=== PATIENT | female | born 1965 | race Caucasian/White ===

== ENCOUNTER 2020-12-19 09:05 | Outpatient (CLI) | payer BC, SELFPAY ==
--- NOTE | ~2020-12-19 | MMUS_ITS ---
EXAMINATION: US GUIDED NEEDLE BIOPSY DATE: 12/19/2020 12:14 CDT INDICATION: 9:00 sonographic breast mass 4 cm from nipple TECHNIQUE AND FINDINGS: The risks and potential benefits of the procedure were discussed with the patient, and written inform ed consent was obtained. Timeout procedure was performed. After sterile preparation of the left breas t, 1% lidocaine was utilized for local anesthesia. A 14G spring-loaded biopsy gun needle was advanced to the edge of the region of interest from a media l approach utilizing sonographic guidance. A total of 2 tissue core samples were obtained through th e lesion. (Patient complained of pain, was crying.) An Inrad tissue marker clip was then placed at t he biopsy site. Hemostasis was achieved. A sterile bandage was applied. There was no evidence of immediate complication. The patient was given verbal instructions prior to departing from the department. A two view mammogram was performed to document tissue marker clip plac ement. The tissue samples were submitted to surgical pathology for histologic analysis. IMPRESSION: 1. Successful ultrasound guided biopsy of left 9:00 breast mass with biopsy marker placement. Please refer to pathology report for histologic analysis. Reviewed, dictated and finalized at [facility]. Reviewed, dictated and finalized at location A. IMPRESSION: 1. Successful ultrasound guided biopsy of left 9:00 breast mass with biopsy ma rker placement. Please refer to pathology report for histologic analysis.
== END 2020-12-19 09:06 | disposition home or self-care (01) ==
LOC: ANHIMG 09:09
PROVIDERS: PCP Family Medicine; Visit Provider Surgery
DX: C50.912 Malignant neoplasm of unspecified site of left female breast (principal)
CPT/HCPCS: 19083; 88305; 88342; 88360; A4648

== ENCOUNTER 2021-01-15 07:58 | Outpatient (CLI) | payer BC, SELFPAY ==
--- NOTE | ~2021-01-15 | MR_ITS ---
EXAMINATION: MR breast BI wo/w con INDICATION: Left breast cancer TECHNIQUE: Axial VIBRANT pre and dynamic post contrast, Sagittal VIBRANT post contrast, Axial T2 STIR ASSET COMPARISON: None CONTRAST: Multihance, 20 cc BREAST COMPOSITION: Heterogeneous fibroglandular tissue FINDINGS: RIGHT BREAST: There is mild background parenchymal enhancement. No abnormal enhancement is present af ter contrast administration. No pathologically enlarged axillary or internal mammary lymph nodes are identified. LEFT BREAST: There is mild background parenchymal enhancement. There is a 2.8 x 2.2 x 2.2 cm irregula r mass with spiculated margins in the middle third of the lower inner breast at the 8:00 location 4.8 cm from the nipple. The mass demonstrates fast initial enhancement and washout in the delayed phase. No pathologically enlarged axillary or internal mammary lymph nodes are identified. IMPRESSION: 1. Left breast mass, consistent with biopsy-proven malignancy. No metastatic disease identified. BI-RADS category 6, known biopsy-proven malignancy. Reviewed, dictated and finalized at location A. NING DEVELOPER IMPRESSION: 1. Left breast mass, consistent with biopsy-proven malignancy. No metastatic di sease identified. BI-RADS category 6, known biopsy-proven malignancy.
[2021-01-15 11:02] LABS: Estimated Glomerular Filt Rate > 60
== END 2021-01-15 07:59 | disposition home or self-care (01) ==
LOC: ANHIMG 08:03
PROVIDERS: PCP Family Medicine; Visit Provider Surgery
DX: C50.912 Malignant neoplasm of unspecified site of left female breast (principal)
CPT/HCPCS: 77049; A9577; C8908

== ENCOUNTER 2021-02-04 08:34 | Outpatient (CLI) | payer BC, SELFPAY ==
--- NOTE | 2021-02-04 08:42 | ECG_ITS ---
Measurements Intervals [place] Rate: 61 P: 47 OK: 142 QRS: -10 QRSD: 106 T: 31 QT: 432 QTc: 438 Interpretive Statements SINUS RHYTHM VOLTAGE CRITERIA FOR LVH MINIMAL Q WAVES- HIGH LATERAL LEADS BASELINE ARTIFACT- I, II, III, AVR BORDERLINE ECG Electronically Signed On 02-04-2021 9:20:53 CARDIOLOGY TECHNOLOGIST by Jesus Marinelli D.O.
[2021-02-04 09:56] LABS: Basophils Percent Auto 0.5 % (0.2-1.2); Eosinophils Absolute Auto 0.1 K/mm3 (0-0.3); Eosinophils Percent Auto 1.5 % (0-4.4); Hematocrit 37.5 % (37.0-47.0); Hemoglobin 12.3 g/dL (12.0-15.0); Immature Granulocyte Absolute 0.03 K/mm3 (0.00-0.031); Immature Granulocyte Percent A 0.4 % (0-0.5); Lymphocytes Absolute Auto 2.44 K/mm3 (0.9-3.2); Lymphocytes Percent Auto 33.5 % (18.3-44.2); Mean Corpuscular HGB Conc 32.8 g/dl (32-36); Mean Corpuscular Hemoglobin 29.4 pg (26-34); Mean Corpuscular Volume 89.7 fl (80-100); Mean Platelet Volume 10.8 fl (7.4-10.4); Monocytes Absolute Auto 0.5 K/mm3 (0.1-0.6); Monocytes Percent Auto 6.7 % (2.6-8.5); Neutrophils Absolute Auto 4.2 K/mm3 (1.3-6.7); Neutrophils Percent Auto 57.4 % (45.5-73.1); Platelet Count Result 311 k/mm3 (150-375); Red Blood Count 4.18 M/mm3 (4.2-5.4); White Blood Count 7.3 K/mm3 (4.5-10.0)
[2021-02-04 10:17] LABS: Alanine Aminotransferase 34 U/L (4-35); Albumin Level 4.4 g/dL (3.5-5.1); Alkaline Phosphatase 59 U/L (38-126); Anion Gap 8 mmol/L (8-16); Aspartate Amino Transferase 23 U/L (14-36); Bilirubin,Total 0.4 mg/dL (0.2-1.3); Blood Urea Nitrogen 11 mg/dL (7-17); Carbon Dioxide 28 mmol/L (22-30); Chloride 99 mmol/L (98-107); Estimated Glomerular Filt Rate > 60; Glucose 228 mg/dL (65-110); Sodium 135 mmol/L (137-145)
== END 2021-02-04 08:35 | disposition home or self-care (01) ==
LOC: ANHSURGERY 08:40
PROVIDERS: PCP Family Medicine; Visit Provider Surgery
DX: Z01.818 Encounter for other preprocedural examination (principal); I10 Essential (primary) hypertension; E11.9 Type 2 diabetes mellitus without complications; C50.912 Malignant neoplasm of unspecified site of left female breast
CPT/HCPCS: 36415; 80053; 85025; 93005

== ENCOUNTER 2021-02-04 10:18 | Outpatient (CLI) | payer BC, SELFPAY ==
--- NOTE | ~2021-02-04 | XR_ITS ---
EXAMINATION: XR chest 2V DATE: 02/04/2021 10:49 INDICATION: Malignant neoplasm of the left breast TECHNIQUE: PA and lateral views of the chest were obtained. COMPARISON: None FINDINGS: The lungs are clear with no focal airspace opacities, pulmonary edema, pleural effusion or pneumothor ax. The cardiomediastinal silhouette is normal. Mild thoracic dextrocurvature with mild spondylosis. IMPRESSION: 1. No acute cardiopulmonary disease. Reviewed, dictated and finalized at location B. FF PUBLISHING AGENT
== END 2021-02-04 10:19 | disposition home or self-care (01) ==
PROVIDERS: PCP Family Medicine; Visit Provider Internal Medicine Medical Oncology
DX: C50.912 Malignant neoplasm of unspecified site of left female breast (principal); Z17.0 Estrogen receptor positive status [ER+]
CPT/HCPCS: 71046

== ENCOUNTER 2021-02-25 14:55 | Outpatient (CLI) | payer BC, SELFPAY ==
[2021-02-25 15:39] LABS: Basophils Absolute Auto 0.1 K/mm3 (0.0-0.1); Basophils Percent Auto 0.6 % (0.2-1.2); Eosinophils Absolute Auto 0.1 K/mm3 (0-0.3); Hematocrit 38.8 % (37.0-47.0); Hemoglobin 12.8 g/dL (12.0-15.0); Immature Granulocyte Absolute 0.03 K/mm3 (0.00-0.031); Immature Granulocyte Percent A 0.3 % (0-0.5); Lymphocytes Absolute Auto 2.86 K/mm3 (0.9-3.2); Lymphocytes Percent Auto 29.4 % (18.3-44.2); Mean Platelet Volume 10.5 fl (7.4-10.4); Monocytes Absolute Auto 0.6 K/mm3 (0.1-0.6); Monocytes Percent Auto 5.9 % (2.6-8.5); Neutrophils Absolute Auto 6.1 K/mm3 (1.3-6.7); Neutrophils Percent Auto 62.8 % (45.5-73.1); Platelet Count Result 356 k/mm3 (150-375); Red Blood Count 4.41 M/mm3 (4.2-5.4); Red Cell Distribution Width 13.8 % (11.5-14.5); White Blood Count 9.7 K/mm3 (4.5-10.0)
[2021-02-25 15:46] LABS: Alanine Aminotransferase 31 U/L (4-35); Albumin Level 4.5 g/dL (3.5-5.1); Alkaline Phosphatase 66 U/L (38-126); Anion Gap 9 mmol/L (8-16); Aspartate Amino Transferase 26 U/L (14-36); Bilirubin,Total 0.4 mg/dL (0.2-1.3); Blood Urea Nitrogen 14 mg/dL (7-17); Calcium 9.6 mg/dL (8.4-10.2); Carbon Dioxide 24 mmol/L (22-30); Chloride 104 mmol/L (98-107); Estimated Glomerular Filt Rate > 60; Glucose 132 mg/dL (65-110); Potassium 3.9 mmol/L (3.4-5.0); Sodium 137 mmol/L (137-145)
[2021-02-25 15:52] LABS: Beta-Hydroxybutyrate/Acetoacetate 0.32 mmol/L (0.02-0.27)
[2021-02-25 16:09] LABS: Hemoglobin A1C 8.1 % (<5.7)
== END 2021-02-25 14:56 | disposition home or self-care (01) ==
LOC: ANHLAB 14:58
PROVIDERS: PCP Family Medicine; Visit Provider Family Medicine
DX: E11.9 Type 2 diabetes mellitus without complications (principal); Z51.81 Encounter for therapeutic drug level monitoring; Z79.4 Long term (current) use of insulin; R25.2 Cramp and spasm
CPT/HCPCS: 36415; 80053; 82010; 83036; 83735; 84443; 85025

== ENCOUNTER 2021-03-10 15:14 | Outpatient (CLI) | payer BC, SELFPAY ==
--- NOTE | 2021-03-10 15:26 | ECHO_ITS ---
Patient Info Name: Zahra Bruno Age: 55 years : 1965 Gender: Female Ht: 69 in Wt: 287 lbs BSA: 2.58 m2 HR: 76 bpm BP: 175 / 93 mmHg Heart Rhythm: Sinus Arrhythmia Technical Quality: Fair Exam Date: 03/10/2021 3:33 PM Exam Location: [facility] Patient Status: Outpatient Admit Date: 03/10/2021 Staff Ordering Physician: Madelaine Moody DO Asphalt Paving Machine Operator: Stephanie Lambert RDCS Attending Provider: Madelaine Moody DO Referring Physician: Heidy SANCHEZ; Exam Type: CA echo doppler color flow Study Info Indications - Cardiac murmur, unspecified Complete two-dimensional, color flow and Doppler transthoracic echocardiogram is performed. Summary 1. Complete two-dimensional, color flow and Doppler transthoracic echocardiogram is performed. 2. Left ventricular chamber dimension is normal. 3. Left ventricular systolic function is normal, estimated at 60-65%. 4. There is mildly increased left ventricular wall thickness. 5. The left ventricular diastolic function is abnormal. 6. E/e' 11 is mildly elevated. 7. Left atrial chamber dimension is mildly enlarged. 8. There is trace mitral valve regurgitation. 9. There is mild tricuspid valve regurgitation. 10. No pulmonary hypertension, estimated pulmonary arterial systolic pressure is 38 mmHg. 11. There is trace pulmonic regurgitation. Left Ventricle E/e' 11 is mildly elevated. Left ventricular chamber dimension is normal. Left ventricular systolic function is normal, estimated at 60-65%. There is mildly increased left ventricular wall thickness. The left ventricular diastolic function is abnormal. Right Ventricle Right ventricular systolic function is normal and with normal TAPSE 2.3 cm. Right ventricular chamber dimension is normal. Left Atria Left atrial chamber dimension is mildly enlarged. Right Atria Right atrial chamber dimension is normal. Aortic Valve The aortic valve is trileaflet. There is no aortic valve stenosis. There is no aortic valve regurgitation. Pulmonic Valve There is trace pulmonic regurgitation. Mitral Valve There is no mitral valve stenosis. There is trace mitral valve regurgitation. Tricuspid Valve There is mild tricuspid valve regurgitation. No pulmonary hypertension, estimated pulmonary arterial systolic pressure is 38 mmHg. Pericardium/Pleural There is no pericardial effusion. Inferior Vena Cava Normal inferior vena cava with >50% collapse upon inspiration consistent with normal right atrial pressure, 5 mmHg. Aorta The aortic root size at the sinus of Valsalva is normal. Left Ventricular Outflow Tract Name Value Normal LVOT 2D LVOT Diameter 2.0 cm LVOT Doppler LVOT Peak Gradient 12 mmHg LVOT Mean Gradient 6 mmHg LVOT VTI 33 cm LVOT VTI/AV VTI Ratio 0.9 LVOT Stroke Volume 101 ml LVOT CO 8.1 l/min LVOT CI 3.1 l/min/m2 Pulmonic Valve
== END 2021-03-10 15:15 | disposition home or self-care (01) ==
LOC: ANHCARD 15:16
PROVIDERS: PCP Family Medicine; Visit Provider Family Medicine
DX: R01.1 Cardiac murmur, unspecified (principal); I07.1 Rheumatic tricuspid insufficiency
CPT/HCPCS: 93306

== ENCOUNTER 2021-03-18 00:59 | Day surgery (SDC) | payer BC, SELFPAY ==
[2021-02-02 10:27] VITALS: BMI 42.6
--- NOTE | 2021-02-02 10:44 | PC.NURSE ---
Report to the Outpatient Waiting Room, entrance under the green pavilion located off [facility], at time 8:30 on date 02/09/21. OR Time: 12:00. NEEDLE LOCALIZATION - 9:30, NUCLEAR MED INJECTION - 10:00 - You and your visitor will be asked a series of questions to screen for COVID 19 for your protection. - A mask is required within the hospital. - Only one visitor is allowed at this time. Patient visitors will be guided where to wait when not with patient. Preoperative COVID Testing Requirements: No COVID Test needed if: (proof is required; if not received patient will have Rapid Test prior to entry) - Patient has received COVID Vaccine at least 14 days prior to procedure date or - Patient has positive COVID test result within last 90 days of surgery date. COVID Test needed if above criteria is not met If not COVID vaccinated a COVID test must be conducted within 72 hours of surgery and patient is asked to isolate self from time of testing until procedure. You will go to the [facility] Testing Site for your COVID testing. The [facility] Thru Testing site is located at the corner of [address] [facility]. You will only be called if COVID results are positive and your surgeon may reschedule your elective surgery date. Patients may have clear liquids (water, carbonated beverages, clear teas, apple juice) until 3 hours prior to surgery with a maximum of 20 ounces. - No food from midnight until time of surgery - Infants may have breast milk until 4 hours before surgery, formula 6 hours prior to surgery. - Children will be allowed to drink immediately following surgery. If applicable, please bring a bottle or sippy cup to assist with drinking. Juice, water, soda, and popsicles are readily available. For infants on formula, please bring formula the day of surgery. Pacifiers are allowed. Take the following medications with a SIP of water the morning of surgery: AMLODIPINE, INHALER (IF NEEDED) Medications to discontinue per physician: VITAMINS/SUPPLEMENTS Date to take last dose: 02/05/21 Please no make-up, nail setswana, hairspray, perfume, deodorant, or body powder the day of surgery. No jewelry (including any body piercings) or valuables the day of surgery, leave them at home. Please take a shower or bath the night before, or the morning of, surgery with an antibacterial soap. Wear comfortable, loose fitting clothing. Children are encouraged to wear pajamas. HIBICLENS SHOWER - Jewelry must be removed prior to entering the operating room. Rings and piercings that are not removed may be cut off. - The hospital will not accept responsibility for valuables. - Please leave all valuables, including medications, at home the day of surgery. If you are going home after surgery, a licensed funeral car driver must drive you home. - NO public transportation without another adult. - We recommend that an adult stay with you for 24 hours following discharge. - We also recommend that you do not drive, make important decision, drink alcoholic beverages, or take any drugs that were not prescribed by your health care provider for at least 24 hours after your discharge time. For Pediatric surgeries, we recommend two adults accompany the child home (only one inside the building at this time). Follow any additional instructions given to you from your surgeon. Telephone instructions given to GRANT MARTINEZ and asked if any additional questions and then verbalized understanding. Patient advised to call surgeon office or pre surgery nurse liaison [phone] if any additional questions.
--- NOTE | 2021-02-18 14:47 | PC.NURSE ---
Report to the Outpatient Waiting Room, entrance under the green pavilion located off [facility], at time __0630_ on date _03-02-2021. OR Time: ___. - You and your visitor will be asked a series of questions to screen for COVID 19 for your protection. - A mask is required within the hospital. - Only one visitor is allowed at this time. Patient visitors will be guided where to wait when not with patient. Preoperative COVID Testing Requirements: No COVID Test needed if: (proof is required; if not received patient will have Rapid Test prior to entry) - Patient has received COVID Vaccine at least 14 days prior to procedure date or - Patient has positive COVID test result within last 90 days of surgery date. COVID Test needed if above criteria is not met If not COVID vaccinated a COVID test must be conducted within 72 hours of surgery and patient is asked to isolate self from time of testing until procedure. You will go to the [facility] Testing Site for your COVID testing. The [facility] [employer] Thru Testing site is located at the corner of [address] [facility]. You will only be called if COVID results are positive and your surgeon may reschedule your elective surgery date. Patients may have clear liquids (water, carbonated beverages, clear teas, apple juice) until 3 hours prior to surgery with a maximum of 20 ounces. - No food from midnight until time of surgery - Infants may have breast milk until 4 hours before surgery, infant formula 6 hours prior to surgery. - Children will be allowed to drink immediately following surgery. If applicable, please bring a bottle or sippy cup to assist with drinking. Juice, water, soda, and popsicles are readily available. For infants on formula, please bring formula the day of surgery. Pacifiers are allowed. Take the following medications with a SIP of water the morning of surgery: __Amlodipine Medications to discontinue per physician Vitamins Date to take last cmdj [phone] Please no make-up, nail syriac, hairspray, perfume, deodorant, or body powder the day of surgery. No jewelry (including any body piercings) or valuables the day of surgery, leave them at home. Please take a shower or bath the night before, or the morning of, surgery with an antibacterial soap. Wear comfortable, loose fitting clothing. Children are encouraged to wear pajamas. - Jewelry must be removed prior to entering the operating room. Rings and piercings that are not removed may be cut off. - The hospital will not accept responsibility for valuables. - Please leave all valuables, including medications, at home the day of surgery. If you are going home after surgery, a licensed pile driver must drive you home. - NO public transportation without another adult. - We recommend that an adult stay with you for 24 hours following discharge. - We also recommend that you do not drive, make important decision, drink alcoholic beverages, or take any drugs that were not prescribed by your health care provider for at least 24 hours after your discharge time. For Pediatric surgeries, we recommend two adults accompany the child home (only one inside the building at this time). Follow any additional instructions given to you from your surgeon. Telephone instructions given to Patient and asked if any additional questions and then verbalized understanding. Patient advised to call surgeon office or pre surgery nurse liaison [phone] if any additional questions.
[2021-03-11 13:59] VITALS: BMI 41.8
--- NOTE | 2021-03-11 14:02 | PC.NURSE ---
reviewed medical history,allergies and medications,any changes made.pt change in date and time of surgery.
--- NOTE | 2021-03-11 14:03 | SUR.PREOP ---
Report to the Outpatient Waiting Room, entrance under the green pavilion located off [facility], at time _0830 on date _03/18/21 . OR Time: 1200 . needle localization scheduled 0930 - You and will be asked a series of questions to screen for COVID 19 for your protection. - A mask is required within the hospital. Preoperative COVID Testing Requirements: No COVID Test needed if: (proof is required; if not received patient will have Rapid Test prior to entry) - Patient has received COVID Vaccine at least 14 days prior to procedure date or - Patient has positive COVID test result within last 90 days of surgery date. COVID Test needed if above criteria is not met If not COVID vaccinated a COVID test must be conducted within 72 hours of surgery and patient is asked to isolate self from time of testing until procedure. You will go to the [employer] Thru Testing Site for your COVID testing. The [employer] Thru Testing site is located at the corner of [address] [facility]. You will only be called if COVID results are positive and your surgeon may reschedule your elective surgery date. Patients may have clear liquids (water, carbonated beverages, clear teas, apple juice) until 3 hours prior to surgery with a maximum of 20 ounces. - No food from midnight until time of surgery - Infants may have breast milk until 4 hours before surgery, infant formula 6 hours prior to surgery. - Children will be allowed to drink immediately following surgery. If applicable, please bring a bottle or sippy cup to assist with drinking. Juice, water, soda, and popsicles are readily available. For infants on formula, please bring formula the day of surgery. Pacifiers are allowed. Take the following medications with a SIP of water the morning of surgery: __amlodipine Medications to discontinue per physician __vitamin supplements Date to take last dose03/15/21 Please no make-up, nail bulgarian, hairspray, perfume, deodorant, or body powder the day of surgery. No jewelry (including any body piercings) or valuables the day of surgery, leave them at home. Please take a shower or bath the night before, or the morning of, surgery with an antibacterial soap. Wear comfortable, loose fitting clothing. Children are encouraged to wear pajamas. - Jewelry must be removed prior to entering the operating room. Rings and piercings that are not removed may be cut off. - The hospital will not accept responsibility for valuables. - Please leave all valuables, including medications, at home the day of surgery. If you are going home after surgery, a licensed test car driver must drive you home. - NO public transportation without another adult. - We recommend that an adult stay with you for 24 hours following discharge. - We also recommend that you do not drive, make important decision, drink alcoholic beverages, or take any drugs that were not prescribed by your health care provider for at least 24 hours after your discharge time. For Pediatric surgeries, we recommend two adults accompany the child home (only one inside the building at this time). Follow any additional instructions given to you from your surgeon. Telephone instructions given to _ziggy henry and asked if any additional questions and then verbalized understanding. Patient advised to call surgeon office or pre surgery nurse liaison [phone] if any additional questions.
--- NOTE | 2021-03-17 20:32 | PM.HPGS ---
History of Present Illness History of Present Illness Consent: Risks, benefits, and alternatives of a Left breast needle localized lumpectomy with sentinel lymph node biopsy, possible left axillary dissection have been discussed and questions answered. Patient agrees to proceed with procedure. Chief complaint: Left Breast Cancer Narrative: Zahra Bruno is a 55 year old female who first present to my office in Nov. of last year after a screening mammogram revealed an abnormal density in the outer left breast. She had focused compression mammogram views and an US which confirmed a <1 cm lesion in the outer left breast. She then had an US guided left breast core BX. which showed a stage T2 Nx, MO infiltrating ductal carcinoma. She followed up in the office in late Nov. and we discussed further pre- op work-up including ordering an MR of the breast and getting aMedical Oncology consult. The pathology showed: Zahra returns to the office after an U/S guided needle biopsy at on 12/19/20 and pathology showed: Final Diagnosis A. LEFT BREAST AT 9:00 POSITION 4 CM FROM NIPPLE, ULTRASOUND-GUIDED CORE BIOPSY: - MODERATELY DIFFERENTIATED INVASIVE DUCTAL CARCINOMA (DEEP GRADE 2 OF 1-3 (TUBULES 3 + NUCLEI 2 + MITOSES 1 = 6 OF 3-9)), IN 2 OF 2 CORES, AT LEAST 0.8 CM IN GREATEST DIMENSION (SEE COMMENT). Comment: A breast cancer biomarker panel will be performed (addendum report to follow). Based on these findings, the pathologic staging is at least pT1b pNX pMX. The patient reports doing well postoperatively after her US core Bx. She is no longer experiencing pain and she initially developed some signs of infection so took some antibiotics. She has finished the Bactrim on 12/22/20 and states the signs of infection in the left breast has resolved. Left breast- Inspection, some bruising in the 7:00 position, 1cm off the areolar border inferior medial left breast. Biopsy area is nicely sealed. Will probably need a lumpectomy with SLN bx. ( see plan below) Surgical history of full hysterectomy in 2002 and cholecystectomy in 2019. Her surgery was delayed at her request until after the Holidays and then again for cardiac issues after a heart murmur required further W/U wiht a echocardiogram. She now presents desiring a lt. breast lumpectomy. Review of Systems Constitutional: Constitutional: Reports no additional constitutional complaints, Reports fatigue and Denies malaise Eyes: Eyes: Denies change in vision and Denies loss of vision ENT: Reports Normal hearing present, Denies change in voice, Denies dizziness, Denies hoarseness and Denies sore throat Cardiovascular: Cardiovascular: Denies chest pain, Denies leg edema and Denies dyspnea Respiratory: Respiratory: Denies cough, Denies dyspnea and Denies wheezing Gastrointestinal: Gastrointestinal: Denies hematochezia, Denies change in bowel habits and Denies heartburn Comments: History of a cholecytectomy in Genitourinary: Genitourinary: Denies urinary frequency and Denies urinary incontinence Comments: HX of a hysterectomy in 2002 Hormone studies done by Med Onc application development consultant Dr. Casey Deras showed elevated estrogen levels not indicating that the pt was post menopausal status. Integumentary/Breasts: Skin/Breast: Reports furuncle (Recently resolved on lower estremity.) Neurologic: Reports Normal hearing present, Denies confusion, Denies dizziness, Denies loss of vision, Denies memory loss and Denies seizure-like activity Psychiatric: Psychiatric: Denies confusion, Denies depression and Denies memory loss Endocrine: Endocrine: Denies cold intolerance and Reports fatigue Hematologic/Lymphatic: Hematologic/Lymphatic: Denies easy bleeding and Denies easy bruising Allergic/Immunologic: Allergic/Immunologic: Denies wheezing PMFSH Past Medical History Medical History Allergies Arthritis Asthma Diabetes Hypertension Surgical Histor
[2021-03-18] VITALS (13 sets, daily range): BP systolic 119–178; BP diastolic 49–85; PULSE 60–103; RESP 14–24; TEMP 36.3–36.6; O2SAT 92–100
--- NOTE | ~2021-03-18 | NM_ITS ---
EXAMINATION: MM needle loc LT, MM surgical specimen LT, NM sentinel node inject only MAMMOGRAPHY SPECIMEN DATE: 03/18/2021 14:19 SPINNING ROOM WORKER INDICATION: Abnormal left breast mammogram. Left breast cancer. TECHNIQUE: The procedure for a mammography-guided needle localization was discussed with the patient' s. Risks and benefits were detailed, including risks of bleeding, infection, pain, and nondiagnostic specimen. The patient verbalized understanding and agreed to proceed. The time out was performed to verify the patient's name, date of , and site of procedure. The p atient was placed in left breast compression, and the skin overlying the left breast was prepped in u sual fashion. Utilizing mammography guidance, a needle was advanced into the left breast. Two confi rmatory films were obtained. The patient tolerated procedure without immediate complication. A specimen radiograph was performed. 1.066 Millicuries Tc 99m filtered sulfur colloid was injected and 4 aliquots in the anterior upper ou ter quadrant of the breast near the areola. No images were obtained. FINDINGS: Two view confirmatory films of the left breast demonstrate a the wire adjacent to the tissu e marker and mass in the lower inner quadrant. The tissue marker and mass are contained within the s urgical specimen. IMPRESSION: 1. Successful mammography-guided left breast needle localization and sentinel lymph node injection. Reviewed, dictated and finalized at location A. NING ROOM WORKER IMPRESSION: 1. Successful mammography-guided left breast needle localization and sentinel lymph node injection. IMPRESSION: 1. Successful mammography-guided left breast needle localization and sentinel lymph node injection.
[2021-03-18] MEDS: LACTATED RINGERS 1,000 ML 30 ML IV CONT ×2 (09:00→15:21)
[2021-03-18] MEDS: ACETAMINOPHEN 500 MG TABLET 1000 MG PO (09:00)
[2021-03-18] MEDS: KETOROLAC 15 MG/ML VIAL (*BKC) IV PUSH (09:02)
[2021-03-18 09:46] LABS: Glucose Point of Care 144 mg/dl (65-105)
--- NOTE | 2021-03-18 11:00 | WPDANESEPPF ---
Anes - Initial Pre Proc Eval Procedure: Operation Date: 03/18/21 12:00 Proposed Procedures p Ultrasound and/or Mammogram Guided Needle Localization Left Breast, - Kyle Odom MD s Left Breast Lumpectomy with [place] Lymph Node Biopsy Left Breast - Kyle Odom MD Date/Time: 03/18/21 11:00 Surgeon: Kyle Odom MD Pre Op Diagnosis: Left Breast Cancer Patient Data Age: 55 Gender: F Height: 1.77 m Weight: 130.45 kg Allergies Allergy/AdvReac Type Severity Reaction Status Date / Time metformin Allergy Severe Rash Verified 03/11/21 13:36 Penicillins Allergy Severe Rash Verified 03/11/21 13:35 hydrocodone [From Vicodin] AdvReac Severe Itching Verified 03/11/21 13:35 Home Medications Medication Instructions Recorded Confirmed Type albuterol 90 mcg/actuation aerosol 90 mcg INHALATION Q4H PRN 12/11/20 03/11/21 History inhaler amlodipine 5 mg tablet 5 mg PO DAILY 12/11/20 03/11/21 History cholecalciferol (vitamin D3) 1,250 2,000 unit PO DAILY wafer 12/11/20 03/11/21 History mcg (50,000 unit) oral wafer fluticasone propionate 50 1 spray INTRANASAL DAILY 12/11/20 03/11/21 History mcg/actuation nasal spray,suspension insulin degludec 100 unit/mL (3 70 unit SUBCUT QHS #24 ml 12/11/20 03/11/21 Rx mL) subcutaneous pen insulin lispro protamine-lispro 20 unit SUBCUT TIDWMEAL 12/11/20 03/11/21 History 100 unit/mL (50-50) subcutaneous pen meloxicam 15 mg tablet 15 mg PO DAILY 12/11/20 03/11/21 History multivitamin 1 tablet PO DAILY 12/11/20 03/11/21 History omeprazole 40 mg capsule,delayed 40 mg PO DAILY #90 cap 01/05/21 03/11/21 Rx release losartan 50 mg PO DAILY 02/02/21 03/11/21 History Laboratory Tests 03/18/21 09:32 POC Capillary Glucose 144 mg/dl H mg/dl (65-105) Patient hx anesthesia problems: none Family hx anesthesia problems: none Results Review: All pre-operative results and documents have been reviewed as part of the pre-operative evaluation. [facility] Past Medical History Medical History Allergies Arthritis Asthma Diabetes Hypertension Surgical History Surgical History H/O breast biopsy left breast core bx u/s guided 12/19/20 H/O dilation and curettage H/O: hysterectomy 2002 [place] History of section S/P cholecystectomy 2019 [facility] Family History Family History Mother Asthma Diabetes mellitus Hypertension Grandparent Asthma Diabetes mellitus Hypertension Heart disease Cerebrovascular accident Daughter Diabetes mellitus Hypertension Depression Heart disease Cerebrovascular accident Social History Social History Smoking status: Never smoker Alcohol intake: current Alcohol use details: socially Substance use: never Substance use type: does not use Living arrangements: alone Spiritual care concerns: No Anes - Eval Final PreProcedure Day of Procedure 03/18/21 11:00 Patient weight: morbidly obese Heart: regular rate and rhythm Lungs: clear to auscultation and normal air movement Airway: Mallampati scale class II Neurological: alert and oriented Last oral intake: >/= 8 hours ASA classification: III Emergent: no Anesthetic plan: proceed Anesthesia type and monitoring: general LMA and standard monitoring Results Review: All pre-operative results and documents have been reviewed as part of the pre-operative evaluation. Informed Consent: The patient's anesthetic plan and its attendant risks and benefits were discussed with the patient/family/POA. Questions were solicited and answers provided to the satisfaction of the patient/family/POA.
--- NOTE | 2021-03-18 11:59 | WPDHPUPDATE1 ---
History and Physical Update Update Date/Time: 03/18/21 11:59 History and Physical has been reviewed, including an updated exam of the patient. There are NO changes in the patient's condition. Risks, benefits, and alternatives of a sentinel lymph node biopsy on the left, with possible left axillary dissection and needle localized left breast lumpectomy have been discussed and questions answered. Patient agrees to proceed with procedure.
[2021-03-18] MEDS: BUPIVACAINE/EPINEPHRINE 0.25% 10 ML VIAL 20 ML INFILTRATE (12:15)
[2021-03-18] MEDS: ceFAZolin 3 GM/D5W 100 ML 100 ML IVPB (12:15)
[2021-03-18] MEDS: ISOSULFAN BLUE 1% INJ 5 ML VIAL SUB-Q (12:15)
--- NOTE | 2021-03-18 13:28 | SUR.OPER ---
3 gm ancef given by laly wiggins language tutor @ [phone] ivp
--- NOTE | 2021-03-18 15:25 | W.PM.PROC2 ---
Procedure Note - Detailed Date of Procedure 03/18/21 Pre-op Diagnosis Left Breast Cancer Post-op Diagnosis same Procedure Performed 1. [place] lymph node biopsy times 1 2. Needle localized left breast lumpectomy. 3. Excision of 1 none sentinel lymph node (this seemed to be enlarged) Surgeon Kyle Odom MD Grounds Person Angie BROOKS, OR conservation assistant Anesthesia general Indications Patient is a 55-year-old white female who was recently found to have a 2 cm infiltrating ductal carcinoma of the lower medial left breast. MRI showed no obvious enhancing lymph nodes and no other lesions within her breast on either side. Because of this the risks, benefits, and possible complications of a lumpectomy with sentinel lymph node biopsy have been described and she wishes to proceed. Findings Patient had a blue and hot lymph node by scintigraphy the was removed in the standard position just behind the pectoralis major muscle and this was felt to be a sentinel lymph node. Immediately deep to this there was an enlarged of the abnormal appearing 3 x 2 cm lymph node which was excised but it was not E either hot by scintigraphy or blue. There was obvious fibrous breast tissue on the edges of the excision of the lumpectomy specimen originally. Inspection by pathology showed that there was a 2.2 cm obvious mass and that margins were close anteriorly, medially, and inferiorly. All these margins were reexcised. Description of Procedure The patient was seen preoperatively in the holding area, and I marked the patient on the operative side (left). She was brought to the operating room and anesthesia delivered. She was prepped and draped in the usual sterile fashion. A time-out was performed confirming patient and site of surgery. Prior to any incision I carefully injected 6 cc of Lymphazurin blue in the dermis along the areolar margin starting the 6 o'clock position and doing 6 injections circumferentially. I then massaged the breast for 1 minute. An axillary incision was made on the left, and the subcutaneous tissues were dissected with electrocautery and the clavipectoral fascia was incised with electrocautery. Using the Navigator sentinel lymph node probe, the sentinel lymph node was identified and the count in vivo was 1,220. Then with an ex vivo 10- second count of 28.624 was recorded. The count in the axilla after removing this lymph node was between 200 and 300, for background noise. The sentinel lymph node was sent fresh for pathologic evaluation. There was also one non- sentinel lymph node identified visually and by palpation. This one was immediately deep to the sentinel lymph node and it was significantly enlarged estimated about 3 x 2 cm in size. This were sent for permanent sections in formalin to pathology. The wound was irrigated, hemostased, and closed with 2-0 Vicryl and 4-0 Monocryl. That wound was draped away with a sterile towel and the operative breast was examined. The localizing wire was noted to be entering the breast in the lower inner quadrant. I reviewed the mammograms done at the time of placement and planned my incision and excision. A curvilinear incision was made along the wire and the tissue surrounding the wire was removed widely with electrocautery. The specimen was oriented with a long suture lateral and short suture superior and sent for specimen mammogram. I DID send the breast tissue for fresh tissue exam immediate report requested at pathology. Mammography called back stating that the specimen was adequate with the clip and wire within the specimen and apparent good margins. The pathologist called back and stated that the sentinel lymph node showed no signs of cancer cells on touch prep and initial fresh evaluation. Then later the pathologist called back and stated that fresh exam of the lumpectomy specimen revealed the area of the tumor in the central part of the specimen and the closest margins to tumor would be about
[2021-03-18 15:52] LABS: Glucose Point of Care 175 mg/dl (65-105)
[2021-03-18] MEDS: fentaNYL CITRATE INJ (*CRX) 100 MCG/2 ML VIAL 25 MCG IV PUSH ×4 (16:16→16:34)
[2021-03-18] MEDS: ONDANSETRON INJ 4 MG/2 ML VIAL IV PUSH (17:49)
[2021-03-18] MEDS: oxyCODONE HCL (*CRX) 5 MG TAB IR PO (18:19)
--- NOTE | 2021-03-18 18:29 | SUR.PHASEII ---
1829- c/o breast pain. medicated for same.
== END 2021-03-18 18:46 | disposition home or self-care (01) ==
PROVIDERS: PCP Family Medicine; Visit Provider Surgery
PROC: (CPT 19301; principal; 2021-03-18 12:00)
PROC: (CPT 19301; 2021-03-18 12:00)
DX: C50.812 Malignant neoplasm of overlapping sites of left female breast (principal); N60.82 Other benign mammary dysplasias of left breast; E11.9 Type 2 diabetes mellitus without complications; I10 Essential (primary) hypertension; J45.909 Unspecified asthma, uncomplicated; E66.01 Morbid (severe) obesity due to excess calories; Z68.41 Body mass index [BMI] 40.0-44.9, adult; Z79.51 Long term (current) use of inhaled steroids; Z79.4 Long term (current) use of insulin
CPT/HCPCS: 19301; 38525; 19281; 38792; 76098; 82948; 88304; 88305; 88307; 88333; 88342; A9270; A9520; C1713; C1769; J0330; J0690; J1100; J1170; J1885; J2250; J2405; J2704; J2710; J3010; J7120

== ENCOUNTER 2021-06-23 08:31 | Outpatient (CLI) | payer BC, SELFPAY ==
[2021-06-23 09:24] LABS: Hematocrit 40.9 % (37.0-47.0); Hemoglobin 13.3 g/dL (12.0-15.0); Mean Corpuscular HGB Conc 32.5 g/dl (32-36); Mean Corpuscular Hemoglobin 29.3 pg (26-34); Mean Corpuscular Volume 90.1 fl (80-100); Mean Platelet Volume 10.9 fl (7.4-10.4); Platelet Count Result 373 k/mm3 (150-375); Red Blood Count 4.54 M/mm3 (4.2-5.4); Red Cell Distribution Width 13.5 % (11.5-14.5); White Blood Count 8.5 K/mm3 (4.5-10.0)
[2021-06-23 09:36] LABS: Alanine Aminotransferase 27 U/L (4-35); Albumin Level 4.5 g/dL (3.5-5.1); Alkaline Phosphatase 67 U/L (38-126); Anion Gap 8 mmol/L (8-16); Aspartate Amino Transferase 27 U/L (14-36); Bilirubin,Total 0.4 mg/dL (0.2-1.3); Blood Urea Nitrogen 17 mg/dL (7-17); Calcium 9.2 mg/dL (8.4-10.2); Carbon Dioxide 26 mmol/L (22-30); Chloride 102 mmol/L (98-107); Cholesterol 196 mg/dL (0-200); Estimated Glomerular Filt Rate > 60; Glucose 175 mg/dL (65-110); HDL Direct 46 mg/dL; Sodium 136 mmol/L (137-145); Triglycerides 151 mg/dL (<150)
[2021-06-23 09:40] LABS: Hemoglobin A1C 8.3 % (<5.7)
[2021-06-23 09:47] LABS: LDL Cholesterol Direct 102 mg/dL
[2021-06-23 09:55] LABS: Creatinine Urine 57.8 mg/dL
[2021-06-23 10:01] LABS: MALB Creatinine Ratio 12.1 mg/g (0-30)
[2021-06-23 10:14] LABS: Vitamin D 25 Hydroxy 45.9 ng/mL
== END 2021-06-23 08:32 | disposition home or self-care (01) ==
LOC: ANHLAB 08:35
PROVIDERS: PCP Family Medicine; Visit Provider Family Medicine
DX: L02.91 Cutaneous abscess, unspecified (principal); E11.9 Type 2 diabetes mellitus without complications; Z51.81 Encounter for therapeutic drug level monitoring; Z79.4 Long term (current) use of insulin; Z13.21 Encounter for screening for nutritional disorder
CPT/HCPCS: 36415; 80053; 80061; 82043; 82306; 83036; 84443; 85027

== ENCOUNTER 2021-10-13 15:11 | Outpatient (CLI) | payer BC, SELFPAY ==
--- NOTE | ~2021-10-13 | XR_ITS ---
EXAMINATION: XR abdomen obstructive series DATE: 10/13/2021 15:36 INDICATION: Unspecified abdominal pain. TECHNIQUE: Upright and supine views of the abdomen on 3 radiographs were obtained. COMPARISON: None. FINDINGS: There are no dilated loops of bowel. There is a moderate volume of stool in the colon. No f ree intraperitoneal gas. Surgical clips in the right upper quadrant are likely from cholecystectomy. Calcifications in the pelvis are likely phleboliths. IMPRESSION: 1. Normal bowel gas pattern. Reviewed, dictated and finalized at location A.
[2021-10-13 15:33] LABS: Basophils Percent Auto 0.6 % (0.2-1.2); Eosinophils Absolute Auto 0.1 K/mm3 (0-0.3); Eosinophils Percent Auto 1.6 % (0-4.4); Hematocrit 40.5 % (37.0-47.0); Hemoglobin 13.4 g/dL (12.0-15.0); Immature Granulocyte Absolute 0.03 K/mm3 (0.00-0.031); Immature Granulocyte Percent A 0.4 % (0-0.5); Lymphocytes Absolute Auto 1.76 K/mm3 (0.9-3.2); Lymphocytes Percent Auto 25.4 % (18.3-44.2); Mean Corpuscular HGB Conc 33.1 g/dl (32-36); Mean Corpuscular Hemoglobin 29.8 pg (26-34); Mean Platelet Volume 10.6 fl (7.4-10.4); Monocytes Absolute Auto 0.5 K/mm3 (0.1-0.6); Monocytes Percent Auto 7.1 % (2.6-8.5); Neutrophils Absolute Auto 4.5 K/mm3 (1.3-6.7); Neutrophils Percent Auto 64.9 % (45.5-73.1); Platelet Count Result 303 k/mm3 (150-375); Red Cell Distribution Width 13.5 % (11.5-14.5); White Blood Count 6.9 K/mm3 (4.5-10.0)
[2021-10-13 15:46] LABS: Alanine Aminotransferase 55 U/L (6-35); Albumin Level 4.6 g/dL (3.5-5.1); Alkaline Phosphatase 88 U/L (38-126); Anion Gap 10 mmol/L (8-16); Aspartate Amino Transferase 38 U/L (14-36); Bilirubin,Total 0.4 mg/dL (0.2-1.3); Blood Urea Nitrogen 17 mg/dL (7-17); Calcium 9.6 mg/dL (8.4-10.2); Carbon Dioxide 25 mmol/L (22-30); Chloride 101 mmol/L (98-107); Estimated Glomerular Filt Rate > 60; Glucose 340 mg/dL (65-110); Lipase 47 U/L (23-300); Potassium 4.2 mmol/L (3.4-5.0); Sodium 136 mmol/L (137-145)
== END 2021-10-13 15:12 | disposition home or self-care (01) ==
LOC: ANHIMG 15:14
PROVIDERS: PCP Family Medicine; Visit Provider Family Medicine
DX: R10.9 Unspecified abdominal pain (principal)
CPT/HCPCS: 36415; 74019; 80053; 83690; 85025